=== PATIENT | male | born 1975 | race Caucasian/White ===

== ENCOUNTER 2021-04-15 11:31 | Emergency (ER) | payer OTHER ==
[~2021-04-15] VITALS: Ht 175.3 cm; Wt 99.8 kg
[2021-04-15] MEDS ORDERED: CRESTOR10 MG PO (11:50)
[2021-04-15 12:54] LABS: ABSOLUTE EOSINOPHILS 0.1 thou/uL (0.0-0.7); ABSOLUTE MONOCYTES 0.6 thou/uL (0.0-1.2); ABSOLUTE NEUTROPHILS 8.2 thou/uL (1.6-8.1); BASOPHILS 0.4 %; EOSINOPHILS 0.6 %; HEMOGLOBIN 14.1 gm/dL (14.0-18.0); MCH 30.2 pg (26.0-34.0); MCHC 34.4 g/dL (28.0-37.0); MCV 87.6 fL (80.0-100.0); MONOCYTES 5.7 %; MPV 7.6 fl. (7.2-11.1); NUCLEATED RBCS 0 /100WBC; PLATELET COUNT* 278 thou/uL (150-400); POLYS 83.3 %; RBC 4.67 mil/uL (4.50-6.00); RDW-CV 13.4 % (10.5-14.5); WBC 9.8 thou/uL (4.0-11.0)
[2021-04-15 13:04] LABS: CALCIUM 8.3 mg/dL (8.5-10.1); POTASSIUM 4.5 mmol/L (3.5-5.1)
[2021-04-15 13:15] LABS: ALBUMIN 2.7 g/dL (3.4-5.0); TOTAL BILIRUBIN 0.8 mg/dL (<0.1-1.0); TOTAL PROTEIN 7.1 g/dL (6.4-8.2)
[2021-04-15 14:42] LABS: BE -0.7 mmol/L (-2 to +3); PCO2 30.9 mmHg (35.0-45.0); PO2 81.9 mmHg (75.0-100.0); pH 7.464 (7.340-7.450)
[2021-04-15] MEDS ORDERED: DOXYCYCLINE 10100 MG PO (14:52)
[2021-04-15] MEDS ORDERED: PREDNISONE 20 M20 MG PO (14:52)
[2021-04-15] MEDS ORDERED: PROAIR HFA8.5 GM INH (14:52)
[2021-04-15 15:08] VITALS: BP 111/70
--- NOTE | 2021-04-16 08:37 | EKG ---
[place] [address] ELECTROCARDIOGRAM REPORT Name: JANNET GERMAN Room: [facility]#: [id number] Admission: 04/15/21 Attend Phys: Discharge: 04/15/21 Date of : 71 Date of Service: 04/15/21 1250 Report #: [id number] THIS REPORT FOR: //name// [facility] ED Test Date: 2021-04-15 Test Time: 12:50:48 Pat Name: JANNET GERMAN Department: Room: Gender: [employer]: VICTORIA : 1975 Requested By: Alejandrina Beauchamp Order Number: [id number] MD: mOid Durán Measurements Intervals [place] Rate: 71 P: 44 WA: 164 QRS: 18 QRSD: 95 T: 33 QT: 392 QTc: 426 Interpretive Statements Sinus rhythm No previous ECG available for comparison Electronically Signed On 04-16-2021 8:37:27 CDT by Omid Durán [email or web address] <ELECTRONICALLY SIGNED> By: Omid Durán MD, [facility] 04/16/21 0837 1250 1250 Omid Durán MD, FACC /EPI
== END 2021-04-15 15:09 | disposition home or self-care (01) ==
LOC: M.ERS 11:31
PROVIDERS: Physician Assistant
DX: U07.1 COVID-19 (principal); J18.9 Pneumonia, unspecified organism; E78.5 Hyperlipidemia, unspecified; Z79.899 Other long term (current) drug therapy